=== PATIENT | female | born 1990 | race Caucasian/White ===

== ENCOUNTER 2018-07-08 16:05 | Outpatient (REF) | payer BC, SELFPAY ==
[2018-07-09 14:18] LABS: Chlamydia Result Negative; GC Result Negative; Specimen Description CERVIX
== END 2018-07-08 16:25 ==
LOC: LBN 16:05
PROVIDERS: PCP Internal Medicine; Visit Provider Nurse Practitioner Women's Health
DX: Z11.3 Encounter for screening for infections with a predominantly sexual mode of transmission (principal)
CPT/HCPCS: 87491; 87591

== ENCOUNTER 2019-03-24 10:42 | Outpatient (CLI) | payer BC, SELFPAY ==
[2019-03-24 11:59] LABS: Calculated LDL 132 mg/dL (<100); Cholesterol 196 mg/dL (<200); HDL Cholesterol 56 mg/dL (40-60); Triglyceride 42 mg/dL (<150)
== END 2019-03-24 11:02 ==
PROVIDERS: PCP Internal Medicine; Visit Provider Internal Medicine
DX: E78.00 Pure hypercholesterolemia, unspecified (principal)
CPT/HCPCS: 36415; 80061